=== PATIENT | female | born 1950 | race Caucasian/White ===

== ENCOUNTER 2017-06-05 13:05 | Inpatient (IN) | payer MEDICARE, OTHER ==
[~2017-06-05] VITALS: Ht 160 cm; Wt 71.2 kg
--- NOTE | ~2017-06-05 | DS ---
PATIENT:LINDA JIMENEZ :52 MEDICAL RECORD: [id number] DISCHARGE SUMMARY ADMISSION DATE: 06/05/17 DISCHARGE DATE: 06/07/17 Psychiatric Discharge Summary IDENTIFYING DATA: The patient is 67 years old and she was admitted to the hospital on a voluntary basis secondary to an overdose. Apparently, the patient's daughter with whom she has been arguing upset her significantly. The daughter told Linda that she did not want anything else to do with her. The patient says she drank some wine and took 2 handfuls of OxyContin and then began calling and texting family members telling them goodbye. Obviously, the first person she called called 911 and had an ambulance sent to the patient's home. The patient was drunk when she did this, she says that she has a drinking problem and apparently she had been discussing the issue with her primary care physician and considering various treatment options. HOSPITAL COURSE: The patient was admitted to the hospital and fully evaluated from both a medical and psychological, and social standpoint. She was intoxicated when she took the overdose and also put herself consciously in a highly rescuable state. Nevertheless, she did try to hurt herself. Although she has had difficulty with depression in the past, she has never attempted to harm herself. She says that her life circumstances with the exception of the trouble with her daughter are good and we discussed her alcoholism. She insisted that she was not suicidal after having sobered up and she agreed to wait 1 more day for observation, which she did. On the second day of me seeing her, the third day of her hospitalization, she still had good nursing notes, a euthymic mood, and no evidence of acute dangerousness. She was subsequently released at her request. DISCHARGE DIAGNOSES: AXIS I: Major depression, without psychotic features. Alcohol abuse. AXIS II: Cluster B personality traits. AXIS III: Hypothyroidism. Status post ovarian cancer. AXIS IV: Moderate stressors. AXIS V: Global assessment of functioning is 45. PLAN: At the time of discharge, the patient was in good behavioral control. She had no active thoughts of harming herself or others and was tolerating her medicines well. She was on antidepressant medicine. She was referred to outpatient mental health treatment as well as Alcoholics Anonymous. She did not want to stay in the hospital longer. She did not meet criteria for an involuntary commitment and even beyond this I did not feel strongly enough about her leaving, to discharge her against medical advice. One more day of observation would have been better, but I did not feel uncomfortable with discharging her. She has a long-term prognosis that is guarded and will be almost exclusively contingent upon her following through with not drinking and participating in Alcoholics Anonymous and abstaining from alcohol. She does not have an addiction to narcotics. The pain medicines that had been in her cabinet related to previous surgeries and injuries that her and she had had were old and not something they take on a regular basis. TRANSINT:[id number] Voice Confirmation ID: [id number] DOCUMENT ID: [id number] DISCHARGE SUMMARY REPORT [id number] LINDA JIMENEZ PETER MD at 1240 CC: [id number] DICTATION DATE: 06/11/17 1504 TRAVEL REGISTERED NURSE ICU: 06/11/172009 DIS IN 06/07/17 [id number] [place] [address]
--- NOTE | ~2017-06-05 | PN ---
PATIENT:LYNDA JIMENEZ MEDICAL RECORD: [id number] LOCATION:[id number] ADMISSION DATE: 06/05/17 PROGRESS NOTE DATE OF SERVICE: 06/07/2017 SUBJECTIVE: The patient's case was discussed with staff. She has no new complaint. OBJECTIVE: The patient has a euthymic mood and is oriented fully. She says that she will never try to harm herself again and wants to be discharged. ASSESSMENT: No change in diagnoses. PLAN: The patient agrees to follow up with [facility] for substance abuse treatment and [facility] for mental health treatment. Her long-term prognosis is guarded. TRANSINT:[id number] Voice Confirmation ID: [id number] DOCUMENT ID: [id number] BRAYDON CASTELAN MD at 1204 CC: [id number] DICTATION DATE: 06/07/17 1316 PROJECT ENGINEER CHEMICALS: 06/07/17 1331 DIS IN 06/07/17 [id number] [place] [address]
--- NOTE | ~2017-06-05 | PSY ---
PATIENT NAME:LYNDA JIMENEZ MEDICAL RECORD: [id number] : 52 LOCATION:[facility] ADMISSION DATE: 06/05/17 ACCOUNT: [id number] PSYCHIATRIC EVALUATION DATE OF EVALUATION: 06/06/17 PSYCHIATRIC EVALUATION IDENTIFYING DATA: The patient is 67 years old and she is admitted to the hospital on a voluntary basis. CHIEF COMPLAINT: Overdose. HISTORY OF PRESENT ILLNESS: The patient has a daughter with whom she has been arguing. The patient is upset with the daughter and tells me that the daughter has told her that she wishes to have no further contact with her. The patient says that she had been drinking wine. She then went to the medicine cabinet and took 2 handfuls of OxyContin and then began texting or calling the family members and friends to tell them goodbye. She says that she did this on purpose because she knew that they would rescue her. She also says with a great deal of insight that this was just attention seeking. She does not really endorse a lot of vegetative depressive symptoms, but she does have some chronic difficulties with depression for which she is being treated with Paxil. She says that she drinks 2-3 glasses of wine a night, she often goes a long period without drinking and does not find that she has any trouble with withdrawal. PAST MEDICAL HISTORY: Significant for hypothyroidism. She also has a history of ovarian cancer with hysterectomy many years ago. PAST PSYCHIATRIC HISTORY: Significant for outpatient treatment with antidepressants, but no history of drug or alcohol abuse and no history of trying to hurt herself and certainly no history of being hospitalized before. FAMILY HISTORY: Negative for psychiatric disease by her report. Her daughter has had some difficulties, but she is an adopted child and has no biologic relations to the patient. SOCIAL HISTORY: The patient is to her third . She has no history of drug or alcohol abuse. She is denying any intent to harm herself previously. She apparently functioned reasonably well socially and occupationally. MENTAL STATUS EXAMINATION: The patient is awake, alert and oriented to person, place, time and situation. Her mood is flat. Her affect is appropriate. Thought processes are goal directed. Memory, concentration and abstraction abilities are mildly impaired and she denies any intent to harm herself or others as well as overt psychotic symptoms. ALLERGIES: SULFA. MEDICATIONS: Current medications include Synthroid, estrogen, and Paxil. ASSETS: Supportive family members. LIABILITIES: Limited insight. DIAGNOSTIC IMPRESSION: AXIS I: 1. Major depression, moderate severity without psychotic features. 2. Alcohol abuse. AXIS II: Cluster B personality traits. AXIS III: Hypothyroidism, status post ovarian cancer. AXIS IV: Moderate stressors. AXIS V: Global assessment of functioning is 40. PLAN: At this time, the patient is admitted to the hospital secondary to an overdose with a narcotic and some alcohol. She will be comprehensively evaluated from both medical, psychological, and social standpoint. She will be treated with both mood stabilizing and antidepressant medications as deemed appropriate. Her long-term prognosis is guarded. TRANSINT:[id number] Voice Confirmation ID: [id number] DOCUMENT ID: [id number] BRYADON CASTELAN MD at 1303 CC: [id number] DICTATION DATE: 06/06/17 1346 WOOL SHEARING SUPERVISOR: 06/06/17 1429 ADM IN [id number] [place] [address]
[2017-06-05 19:41] VITALS: BP 114/75; BP 142/60
[2017-06-05] MEDS ORDERED: ROCALTROL0.25 MCG PO (19:43)
[2017-06-05] MEDS ORDERED: LEVOTHYROXINE100 MCG PO (19:44)
[2017-06-05] MEDS ORDERED: VITAMIN D250000 UNIT PO (19:46)
[2017-06-05] MEDS ORDERED: PREMARIN0.45 MG PO (19:48)
[2017-06-05] MEDS ORDERED: PAXIL40 MG PO (19:48)
[2017-06-05 20:12] VITALS: BP 126/69; BMI 27.8
[2017-06-06 07:07] LABS: BASOPHILS 0.8 % (0-2); EOSINOPHILS 3.9 % (0-7); HEMATOCRIT 37.3 % (36.0-48.0); HEMOGLOBIN 11.6 g/dL (12-16); MCHC 31.1 g/dL (31.0-37.0); MCV 86.9 fL (80.0-100.0); MEAN PLATELET VOLUME 10.4 fL (7.4-10.4); MONOCYTES 10.3 % (2-11); PLATELET COUNT 228 10x3/uL (130-400); RBC 4.29 10x6/uL (4.00-5.40); RDW 15.1 % (11.5-14.5); WBC 4.8 10x3/uL (4.8-10.8)
[2017-06-06 07:15] LABS: HEMOGLOBIN A1C 4.8 % (4.8-6.0)
[2017-06-06 07:37] VITALS: BP 120/61
[2017-06-06 07:45] LABS: ALBUMIN 3.1 g/dL (3.4-5.0); ALKALINE PHOSPHATASE 58 U/L (46-116); ALT (SGPT) 19 U/L (10-68); BILIRUBIN - TOTAL 0.34 mg/dL (0.2-1.3); CALC OSMOLALITY 275 mosm/kg (275-300); CARBON DIOXIDE 31.9 mmol/L (21.0-32.0); CHLORIDE - SERUM 103 mmol/L (98-107); CHOL - HDL RATIO 1.5 ratio (2.3-4.1); CHOLESTEROL, TOTAL 191 mg/dL (0-200); CREATININE - SERUM 0.8 mg/dL (0.6-1.3); GLUCOSE 98 mg/dL (74-106); HDL CHOLESTEROL 126 mg/dL (32-96); LDL CHOLESTEROL 52 mg/dL (0-100); LDL-HDL RATIO 0.4 ratio (1.5-3.5); POTASSIUM - SERUM 3.7 mmol/L (3.5-5.1); PROTEIN - SERUM 6.4 g/dL (6.4-8.2); SODIUM 138 mmol/L (136-145); THYROID STIMULATING HORMONE 1.75 uIU/mL (0.36-3.74); TRIGLYCERIDE 65 mg/dL (30-200); UREA NITROGEN 12 mg/dL (7-18); eGFR NON AFRICAN AMERICAN 76 mL/min (90-120)
[2017-06-06 14:28] VITALS: Ht 160 cm; Wt 71.2 kg
[2017-06-06 19:30] VITALS: BP 128/89
[2017-06-07 06:13] LABS: RAPID PLASMA REAGIN Non Reactive (Non Reactive); VITAMIN D 25 HYDROXY 25.4 ng/mL (30.0-100.0)
[2017-06-07 07:21] LABS: FOLATE (FOLIC ACID) - SERUM 10.9 ng/mL (>3.0)
[2017-06-07 08:44] VITALS: BP 137/59
[2017-06-07] MEDS ORDERED: BUSPAR10 MG PO (13:18)
== END 2017-06-07 15:19 | disposition home or self-care (01) | DRG 881 ==
LOC: D.PSYCH 13:05
PROVIDERS: Psychiatry & Neurology Psychiatry
DX: F32.9 Major depressive disorder, single episode, unspecified (principal); F10.10 Alcohol abuse, uncomplicated; E03.9 Hypothyroidism, unspecified; K21.9 Gastro-esophageal reflux disease without esophagitis; E55.9 Vitamin D deficiency, unspecified; J30.9 Allergic rhinitis, unspecified; K58.9 Irritable bowel syndrome, unspecified; M81.0 Age-related osteoporosis without current pathological fracture; T40.602A Poisoning by unspecified narcotics, intentional self-harm, initial encounter; T51.0X2A Toxic effect of ethanol, intentional self-harm, initial encounter